=== PATIENT | female | born 1980 | race American Indian/Alaskan Native ===

== ENCOUNTER 2020-03-15 17:04 | Emergency (ER) | payer OTHER, SELFPAY ==
[2020-03-15 17:22] VITALS: BP 118/71; PULSE 76; RESP 15; TEMP 37.2; O2SAT 98; BMI 31.1
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
[2020-03-15] MEDS: LIDOCAINE/PRILOCAINE 5 GM TOP (18:10)
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
[2020-03-15] MEDS: TET,DIPH,PERTUSS(ACELL),VAC/PF 0.5 ML SYRINGE IM (18:41)
[2020-03-15] MEDS: KETOROLAC 60 MG/2 ML VIAL 30 MG IM (19:06)
[2020-03-15] MEDS: CYCLOBENZAPRINE 10 MG TABLET PO (19:06)
[2020-03-15] MEDS: LIDOCAINE PATCH 1 EACH ADH..PATCH TOP (19:07)
[2020-03-15] MEDS: BACITRACIN OINT 0.9 GM PCKT 2 APPLIC TOP (20:37)
[2020-03-15] MEDS: CYCLOBENZAPRINE 10 MG PREPACK 1 BOTTLE MISC (20:37)
[2020-03-15] MEDS: KETOROLAC 10MG PREPACK 1 BOTTLE MISC (20:37)
[2020-03-15 20:42] VITALS: BP 112/65; PULSE 81; O2SAT 99
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
== END 2020-03-15 20:57 | disposition home or self-care (01) ==
PROVIDERS: Emergency Provider Nurse Practitioner Family
DX: S51.012A Laceration without foreign body of left elbow, initial encounter (principal); M25.522 Pain in left elbow; M54.2 Cervicalgia; M62.830 Muscle spasm of back; V89.2XXA Person injured in unspecified motor-vehicle accident, traffic, initial encounter; Z23 Encounter for immunization
CPT/HCPCS: 72070; 72100; 72125; 73080; 90471; 96372; 99284; 90715; J1885

== ENCOUNTER 2025-02-14 15:29 | Emergency (ER) | payer OTHER, SELFPAY ==
[2025-02-14 15:36] VITALS: BP 150/76; PULSE 115; RESP 12; TEMP 36.7; O2SAT 97
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
--- NOTE | 2025-02-14 16:04 | ED_ITS ---
<Statement entered by Hernando Charles, DO - 02/14/25 18:22> Co-sign statement: I was available for consultation during this patient's emergency department visit. This chart is being signed by myself for administrative purposes only. I do not have direct contact with this patient during this visit. They were seen independently by the APC. HPI - Extremity Injury (Lower) General Chief Complaint: Extremity Injury, Lower Stated Complaint: R leg pain due to fall Time Seen by Provider: 02/14/25 15:50 Source: family Mode of arrival: Wheelchair History of Present Illness HPI Narrative: Ms. Lang is a pleasant 44-year-old female, with no significant reported past medical history, on Suboxone, who presents to the emergency department for right anterior knee pain after a fall x 3 days. Patient reports she was at a grocery store, wearing slides, when she slipped in some liquid causing her to fall and her need to twist/flex abnormally. Since then she has continued to have pain on the anterior lateral side of the knee and the knee/calf is swollen. She is having pain with weight-bearing and ambulation has been trying to walk on her heel. Reports that her left upper arm is slightly sore since the fall but not as bad as her knee, no tenderness to the shoulder, elbow or humerus but she does report some pain with abduction in the biceps muscle. No head strike, LOC or blood thinner use. No open wound on the leg, deformity or decreased sensation. She is here with some family members. Related Data Previous Rx's ?Medication ?Instructions ?Recorded azithromycin 250 mg tablet 0 tab PO QDAY #6 tabs 07/31 (Zithromax Z-Robe) cyclobenzaprine 10 mg tablet 10 mg PO TID PRN muscle s pasm #20 03/15/20 tabs ketorolac 10 mg tablet 10 mg PO TID PRN pain #10 ta bs 03/15/20 lidocaine 5 % topical patch 1 patch topical DAILY PRN pain #15 03/15/20 ea Allergies Allergy/AdvReac Type Severity Reaction Status Date / Time No Known Drug Allergies Allergy Verified 03/15/20 17:22 Review of Systems Review of Systems ROS Unobtainable: All systems reviewed & are unremarkable except as noted in HPI and below Patient History tobacco type: vaping alcohol intake frequency: holidays/special occasions only Exam Narrative Exam Narrative: GENERAL: 44 year old patient appears stated age. Overweight patient, in no acute distress. HEAD: Atraumatic. Normocephalic. EYES: No scleral icterus. No injection or drainage. NECK: Trachea midline. Cervical ROM intact. CARDIOVASCULAR: Increased rate, regular rhythm. RESPIRATORY: ?Nonlabored respirations. ?Speaking in clear, full sentences. ?? EXTREMITIES: Tenderness to palpation of anterior right knee overlying the patella and the patellar tendon. There is some edema of the right knee and tenderness on the posterolateral aspect as well. Patient is able to flex and extend the knee but with discomfort. 2+ DP pulse, brisk capillary refill and sensation intact to light touch in the dorsal and plantar aspect of the foot. Difficult to evaluate joint stability as patient does have significant pain with any attempt of anterior-posterior drawer. No erythema, bruising or increased warmth of the lower extremity. No medial or lateral malleolus tenderness of the bilateral ankles. No tenderness to palpation of bilateral hands, wrists, elbows, shoulders. NEURO: AOx3. ?Clear speech. ? SKIN: No rash or erythema of visible areas Initial Vital Signs Initial Vital Signs: Vital Signs Temperature 98.1 F 02/14/25 15:36 Pulse Rate 115 H 02/14/25 15:36 Respiratory Rate 12 02/14/25 15:36 Blood Pressure 150/76 H 02/14/25 15:36 Pulse Oximetry 97 02/14/25 15:36 Oxygen Delivery Method Room Air 02/14/25 15:36 Course Orders Ordered: ED Orders 02/14/25 15:53 XR knee RT 3V Stat 02/14/25 17:02 Consult to [facility] Stat Discontinued Medications Acetaminophen (Acetaminophen 325 Mg Tablet) 975 mg PO NOW ONE Stop: 02/14/25 16:37 Last Admin: 02/14/25 16:43 Dose: 975 mg Documented By: AILEEN Ibuprofen (Ibuprofen 400 Mg Tablet) 400 mg PO NOW ONE Stop: 02/14/25 16:37 Last Admin: 02/14/25 16:42 Dose: 400 mg Documented By: AILEEN Vital Signs Vital signs: Vital Signs - 8 hr 02/14/25 15:36 02/14/25 16:53 Temperature 98.1 F Pulse Rate 115 H 112 H Respiratory Rate 12 18 Blood Pressure 150/76 H 115/80 Pulse Oximetry 97 98 Oxygen Delivery Method Room Air Room Air MDM - Extremity Injury (Lower) Medical Records Attestation: I reviewed the patient's medical records. Imaging Data XR Right Knee: Radiologist's Impression: PROCEDURE: XR KNEE RT 3V INDICATIONS: pain after fall TECHNIQUE: 3 views of the knee were acquired. COMPARISON: None. FINDINGS: Bones: Acute avulsion fracture of the lateral fibular head. Acute impaction fracture of the lateral femoral condyle. No suspicious bony lesions. Soft tissues: Moderate joint effusion. No suspicious soft tissue calcifications. IMPRESSION: 1. Acute avulsion fracture of the lateral fibular head at the likely biceps femoris insertion. 2. Acute impaction fracture of the lateral femoral condyle likely secondary to a pivot-shift injury. 3. Recommend further evaluation with nonemergent knee MRI. Dictated by: Elijah Connor M.D. on 02/14/2025 at 16:39 Approved by: Elijah Connor M.D. on 02/14/2025 at 16:41 [facility] Narrative Medical decision making narrative: 44-year-old female, with no significant reported past medical history, on Suboxone, who presents to the emergency department for right anterior knee pain after a fall x 3 days. Differential diagnosis includes but is not limited to right knee sprain, strain, fracture, dislocation, ligament injury, etc. On exam patient is in no acute distress, nontoxic appearing, heart rate mildly elevated in triage otherwise vital signs appropriate. She is subjective pain with flexion-extension of right knee and tenderness to palpation of the anterior lateral knee. No obvious deformities. Lower extremities neurovascularly intact, warm, well perfused. Right knee x-ray obtained, we will treat pain with ibuprofen and Tylenol. X-ray reveals acute avulsion fracture of the lateral fibular head at likely biceps femoris insertion, acute impaction fracture of the lateral femoral condyle likely secondary to a pivot shift injury, recommend further evaluation with nonemergent knee MRI. Orthopedic surgeon on-call was consulted, Dr. Shaw. Discussed patient history and x-ray report. He explained that patient has likely torn their ACL and we will need to be placed into a knee immobilizer, he did recommend a hinged knee immobilizer however we do not have these in the ER so he was okay with her going into a regular knee immobilizer, with crutches and weight-bearing as tolerated. He recommends that the patient call and follow up with Dr. Agrawal or [place] with need for likely ACL repair surgery. Printed and discussed imaging results and orthopedic consultation with the patient. She verbalized understanding of the importance of follow up with Orthopedics, we discussed supportive care with brace, crutches, rice therapy, ibuprofen, Tylenol. Also provided her with a work note for light duty. Patient verbalized understanding of all information and is agreeable to the plan, she is stable for discharge home. Discharge Plan Departure Patient Disposition: Home Clinical Impression: Closed fracture of head of right fibula Qualifiers: Encounter type: initial encounter Qualified Code(s): S82.831A - Other fracture of upper and lower end of right fibula, initial encounter for closed fracture Closed fracture of femoral condyle Qualifiers: Encounter type: initial encounter Fracture alignment: nondisplaced Laterality: right Qualified Code(s): S72.414A - Nondisplaced unspecified condyle fracture of lower end of right femur, initial encounter for closed fracture Fall from slipping Qualifiers: Encounter type: initial encounter Qualified Code(s): W01.0XXA - Fall on same level from slipping, tripping and stumbling without subsequent striking against object, initial encounter Instructions: DI for Anterior Cruciate Ligament Injury Activity Restrictions/Additional Instructions: Dear Ms. Lang, Thank you for coming to the emergency department. I am very sorry that you experienced a slip and fall resulting in a right knee injury. As we discussed, your x-ray today showed a fracture of the fibula and the femoral condyle, and you likely have injured her ACL. You will need to follow up with Orthopedics for further imaging and management. Please use the knee immobilizer you were supplied with today in addition to crutches. Please use RICE therapy for your pain in addition to ibuprofen/acetaminophen. Rest the painful area. Ice the area of pain/swelling for at least 15 minutes, 4x a day. Compress the area of swelling using a brace, wrap, or splint if applied. Elevate the painful or swollen extremity by supporting it above the level of the heart with pillows when sitting or laying. Please take Ibuprofen (Motrin/Advil) or Acetaminophen (Tylenol) for pain. These are available over the counter. You may take Ibuprofen 600 mg every 8 hours with food for pain. You may also take Acetaminophen 650 mg every 4-6 hours for pain. Do not exceed 3000 mg of Tylenol a day as this can cause liver damage. Do not drink alcohol with either of these medications. Please call to schedule an appointment with [facility] for follow up. Please follow up with your primary care doctor within the next 2-3 days for ER follow-up. (If you do not have a PCP you can call [phone]. ?to schedule an appointment with an [facility] Primary Care Provider) IF YOU DEVELOP ANY NEW OR WORSENING SYMPTOMS, RETURN TO THE ER! Please read the attached instructions, they highlight more specific treatments and interventions for you at home. Thank you for letting me participate in your care, Niki Booth PA-C Prescriptions: No Action azithromycin [Zithromax Z-Robe] 250 MG tablet 0 tab PO QDAY Qty: 6 0RF lidocaine 5 % adhesive patch,medicated 1 patch TOP DAILY PRN (Reason: pain) Qty: 15 0RF Rx Instructions: leave on most painful area for up to 12 hrs cyclobenzaprine 10 mg tablet 10 mg PO TID PRN (Reason: muscle spasm) Qty: 20 0RF ketorolac 10 mg tablet 10 mg PO TID PRN (Reason: pain) Qty: 10 0RF Referrals: Celestina Agrawal DO [Physician, Orthopedic Surgery] Referral Note: R knee fractures Stand Alone Forms: Patient Portal/API, Work Release Note
[2025-02-14] MEDS: IBUPROFEN 400 MG TABLET PO (16:42)
[2025-02-14] MEDS: ACETAMINOPHEN 325 MG TABLET 975 MG PO (16:43)
[2025-02-14 16:53] VITALS: BP 115/80; PULSE 112; RESP 18; O2SAT 98
== END 2025-02-14 17:25 | disposition home or self-care (01) ==
PROVIDERS: Emergency Provider Physician Assistant
DX: S82.831A Other fracture of upper and lower end of right fibula, initial encounter for closed fracture (principal); S72.414A Nondisplaced unspecified condyle fracture of lower end of right femur, initial encounter for closed fracture; W01.0XXA Fall on same level from slipping, tripping and stumbling without subsequent striking against object, initial encounter
CPT/HCPCS: 73562; 99283; 99284

== ENCOUNTER → 2025-03-05 16:28 | Outpatient (CLI) | payer OTHER, SELFPAY ==
--- NOTE | 2025-03-05 16:30 | DI.MRI.S_ITS ---
PROCEDURE: MR KNEE RT WO CON INDICATIONS: eval fractures TECHNIQUE: Noncontrast sagittal PD fast spin echo and T2 fast spin echo with fat saturation, sagittal 3-D FLASH with fat saturation; coronal T1 spin echo and PD fast spin echo with fat saturation, and axial PD fast spin echo with fat saturation through the knee. COMPARISON: None. FINDINGS: Image quality: Excellent. Some images are limited by patient motion, pulsation or other artifacts with some low [id number]. Bones and cartilage: Abnormal appearance of the right knee with multiple bone contusions most notably the anterior aspect of the medial femoral condyle (series 10, 11, image 19) with bone edema and a 1.8 cm diameter area osteo necrosis under the cortical impaction site. Bone edema is also noted in the medial tibial plateau anteriorly and posteriorly (series 11, image 20) most likely related to impaction or matching bone contusions from the femoral site. Marked bone edema related to the known avulsion fracture of the proximal right fibula head and there is some adjacent edema in the lateral tibial metaphysis. No definitive full tibial plateau fracture. [id number] diffuse cartilaginous thinning in the medial and lateral greater than patellofemoral compartments. Menisci: Markedly abnormal appearance of the medial meniscus with complex horizontal and oblique tears exiting to the inferior surface of the posterior horn extending towards the midbody. Anterior horn is grossly intact. Medial meniscus is markedly extruded medially on the coronal images The lateral meniscus demonstrates minimal internal signal in the anterior horn does not definitively exit to a surface. Posterior meniscocapsular separation medial and lateral. Cruciate ligaments: Markedly abnormal signal with heterogeneous increased T2 weighted signal, thickening and irregularity of the anterior cruciate ligament which is torn with minimal intact fibers near complete tear. Posterior cruciate ligament demonstrates mild increased T2 weighted signal/thickening proximally mild injury/strain without complete tear and with intact fibers. Medial structures: Increased T2 weighted signal surrounding and within the medial collateral ligament grade 2 injury. Medial collateral ligament is displaced medially on the coronal images along its entire course.. Moderate diffuse increased T2 weighted signal, tendinopathy versus partial tear distal semimembranosus tendon. Injury/strain versus partial tear proximal attachment medial head of the gastrocnemius. Small popliteal cyst measures up to 2 cm. Lateral structures: Abnormal increased T2 weighted signal, thickening injury and partial tear of the distal biceps femoris tendons. Abnormal signal in the proximal and distal aspects of the lateral collateral ligament moderate injury/strain and edema surrounding the distal aspect related to the previously noted avulsion fracture of the fibula head. Moderate diffuse edema in the popliteus muscle and partial tear of the popliteus tendon with surrounding edema and fluid. Moderate diffuse edema surrounding the iliotibial band. Anterior structures: Increased T2 weighted signal/edema in the proximal and distal aspects of the patellar ligament, injury/strain. Quadriceps tendon appears intact. Nonspecific subcutaneous edema anterior to the patella and patellar ligament. Patellar alignment is normal. No femoral trochlear dysplasia or ventral trochlear prominence. Joint space: Moderate knee joint effusion. IMPRESSION: Markedly abnormal appearance of the right knee with numerous injuries including bone contusions, trabecular injuries in the medial femoral condyle anteriorly, medial tibial plateau, avulsion fracture of the fibular head, edema in the lateral tibial metaphysis. Complex tear of the posterior horn into the mid body of the medial meniscus. Probable complete tear of the anterior cruciate ligament. Grade 2 injury medial collateral ligament. Injuries of the distal biceps tendon, lateral collateral ligament, proximal posterior cruciate ligament, distal semimembranosus tendon, popliteus, medial head of the gastrocnemius proximally as discussed above. Moderate knee joint effusion. Other findings as above. Dictated by: Beau Murphy M.D. on 03/06/2025 at 14:05 Approved by: Beau Murphy M.D. on 03/06/2025 at 14:28
== END ==
PROVIDERS: Referring Provider Orthopaedic Surgery; Visit Provider Orthopaedic Surgery
DX: S82.831A Other fracture of upper and lower end of right fibula, initial encounter for closed fracture (principal); S72.414A Nondisplaced unspecified condyle fracture of lower end of right femur, initial encounter for closed fracture; S83.231A Complex tear of medial meniscus, current injury, right knee, initial encounter; S83.511A Sprain of anterior cruciate ligament of right knee, initial encounter; M25.461 Effusion, right knee; M71.21 Synovial cyst of popliteal space [Baker], right knee; X58.XXXA Exposure to other specified factors, initial encounter
CPT/HCPCS: 73721

== ENCOUNTER 2025-03-07 16:18 | Emergency (ER) | payer OTHER, SELFPAY ==
[2025-03-07 16:30] VITALS: BP 152/86; PULSE 85; RESP 16; TEMP 36.9; O2SAT 96; BMI 48.4
--- NOTE | 2025-03-07 16:37 | DI.US.S_ITS ---
PROCEDURE: US PERIPH VENOUS LOW EXTREM RT INDICATIONS: RLE edema TECHNIQUE: Real-time imaging, as well as color and pulse Doppler interrogation, were performed of the lower extremity deep veins from the inguinal ligament to the popliteal fossa, with documentation of the visualized calf veins. COMPARISON: None. FINDINGS: The common femoral, femoral, popliteal, and the visualized calf veins are normally compressible, and free of intraluminal thrombus. Color and pulse Doppler demonstrate normal phasic intraluminal flow. There is normal augmentation response to distal compression maneuver. IMPRESSION: No findings of lower extremity deep venous thrombosis. Dictated by: Jamar Rubin M.D. on 03/07/2025 at 18:56 Approved by: Jamar Rubin M.D. on 03/07/2025 at 18:56
--- NOTE | 2025-03-07 16:44 | ED_ITS ---
HPI - Extremity Problem <Renan Armstrong PA-C - Last Filed: 03/07/25 19:04> General Chief complaint: Extremity Problem,Nontraumatic Stated complaint: stat us Time Seen by Provider: 03/07/25 16:37 Source: patient Mode of arrival: Ambulatory History of Present Illness HPI Narrative: This is a 44-year-old female presents emergency department due to right lower extremity swelling. She states that her right lower extremity has been swollen since her injury 3 weeks ago. Briefly she fell 3 weeks ago and had femoral condyle as well as fibular head fracture which she was was seen here for placed in a knee immobilizer. She was then seen by Orthopedics 2 weeks ago and recommended to have an MRI obtained. Recently being seen for by her PCP for routine follow up with they sent her here as they are concerned with the right lower extremity swelling for urgent ultrasound. She states that the right lower extremity has been swollen since the injury 3 weeks ago. Denies any chest pain, shortness breath, fevers, or any other concerning signs or symptoms Related Data Home Medications ?Medication ?Instructions ?Recorded ?Confirmed buprenorphine 8 mg-naloxone 2 mg 2 film buccal DAILY 1 02/27/25 sublingual film (Suboxone) lisinopril 20 mg tablet 20 mg PO DAILY 02/27/2506/23 Previous Rx's ?Medication ?Instructions ?Recorded meloxicam 15 mg tablet 15 mg PO DAILY #30 tabs 06/23 Allergies Allergy/AdvReac Type Severity Reaction Status Date / Time No Known Drug Allergies Allergy Verified 02/27/25 14:14 Review of Systems <Renan Armstrong PA-C - Last Filed: 03/07/25 19:04> Review of Systems Narrative: GENERAL: Denies chills, fatigue, malaise, fever, sweats. HEENT: Denies sinus pain, ear pain, sore throat, difficulty swallowing, dizziness. RESPIRATORY: Denies dyspnea, cough, wheezing, hemoptysis, sputum. CARDIOVASCULAR: Denies chest pain, palpitations, orthopnea, edema, GASTROINTESTINAL: Denies nausea, vomiting, abdominal pain, diarrhea, constipation, melena. : Denies dysuria, frequency, incontinence, hematuria, urinary retention. MUSCULOSKELETAL: Reports right calf swelling and pain SKIN: Denies rash, skin lesions, or other NEUROLOGIC: Denies weakness, headache, numbness, change in speech, confusion, seizures, incoordination. PSYCHIATRIC: No concerning psychosocial issues. 12 point review of systems is negative except for those stated above Patient History <Renan Armstrong PA-C - Last Filed: 03/07/25 19:04> tobacco type: vaping alcohol intake frequency: holidays/special occasions only Exam <Renan Armstrong PA-C - Last Filed: 03/07/25 19:04> Narrative Exam Narrative: GENERAL: Well-developed patient, in mild distress. HEAD: Atraumatic. Normocephalic. EYES: Pupils equal round and reactive. Extraocular motions intact. No scleral icterus. No injection or drainage. ENT: Nose without bleeding, purulent drainage. Throat without erythema, tonsillar hypertrophy or exudate. Airway patent. NECK: Trachea midline. Non tender EXTREMITIES: Mild 1+ edema to the right calf, nonpitting, tenderness to palpation of the right calf as well. NEURO: AOx3. SKIN: No rash or erythema of visible areas Initial Vital Signs Initial Vital Signs: Vital Signs Temperature 98.4 F 03/07/25 16:30 Pulse Rate 85 03/07/25 16:30 Respiratory Rate 16 03/07/25 16:30 Blood Pressure 152/86 H 03/07/25 16:30 Pulse Oximetry 96 03/07/25 16:30 Oxygen Delivery Method Room Air 03/07/25 16:30 <Marlo Maxwell MD - Last Filed: 03/08/25 01:45> Initial Vital Signs Initial Vital Signs: Vital Signs Temperature 98.4 F 03/07/25 16:30 Pulse Rate 85 03/07/25 16:30 Respiratory Rate 16 03/07/25 16:30 Blood Pressure 152/86 H 03/07/25 16:30 Pulse Oximetry 96 03/07/25 16:30 Oxygen Delivery Method Room Air 03/07/25 16:30 Course <Renan Armstrong PA-C - Last Filed: 03/07/25 19:04> Orders Ordered: ED Orders 03/07/25 16:37 US periph venous low extrem rt Urgent Vital Signs Vital signs: Vital Signs - 8 hr 03/07/25 16:30 Temperature 98.4 F Pulse Rate 85 Respiratory Rate 16 Blood Pressure 152/86 H Pulse Oximetry 96 Oxygen Delivery Method Room Air <Marlo Maxwell MD - Last Filed: 03/08/25 01:45> Orders Ordered: ED Orders 03/07/25 16:37 US periph venous low extrem rt Urgent Vital Signs Vital signs: Vital Signs - 8 hr 03/07/25 16:30 Temperature 98.4 F Pulse Rate 85 Respiratory Rate 16 Blood Pressure 152/86 H Pulse Oximetry 96 Oxygen Delivery Method Room Air MDM - Extremity (Nontraumatic) <Renan Armstrong PA-C - Last Filed: 03/07/25 19:04> Imaging Data US - DVT: Radiologist's Impression: [place] [address] Ultrasound Report Signed Patient: Esperanza Lang MR#: [id number] : 1980 Acct:[id number] Age/Sex: 44 / F Date of Service: 03/07/25 Loc: ED Accession Number: [id number] Procedure: US periph venous low extrem rt Ordering Provider: Renan Armstrong PA-C PROCEDURE: US PERIPH VENOUS LOW EXTREM RT INDICATIONS: RLE edema TECHNIQUE: Real-time imaging, as well as color and pulse Doppler interrogation, were performed of the lower extremity deep veins from the inguinal ligament to the popliteal fossa, with documentation of the visualized calf veins. COMPARISON: None. FINDINGS: The common femoral, femoral, popliteal, and the visualized calf veins are normally compressible, and free of intraluminal thrombus. Color and pulse Doppler demonstrate normal phasic intraluminal flow. There is normal augmentation response to distal compression maneuver. IMPRESSION: No findings of lower extremity deep venous thrombosis. Dictated by: Jamar Rubin M.D. on 03/07/2025 at 18:56 Approved by: aJmar Rubin M.D. on 03/07/2025 at 18:56 [facility] Narrative Medical decision making narrative: ED course: This is a 44-year-old female presents emergency department due to right lower extremity swelling for the last 3 weeks after she fractured her lateral fibular head as well as lateral femoral condyle. Compartments were soft and low concern for compartment syndrome. Right lower extremity ultrasound was ordered which was negative for DVT. She will follow up with the PCP for routine management of suspected benign swelling due to the injury. Of note patient was elected to leave the emergency department due to getting dark before the ultrasound report came back. Attempted to call the patient to inform her of the results but went right to voicemail. Voicemail left informing her of negative for DVT. CC: Right lower extremity swelling Complicating co-morbidities: History of right lower extremity fracture Data collected from: Previous notes Medical records reviewed: Patient was seen this emergency department 21 days ago due to a right lower extremity injury. On Suboxone. Knee x-ray showed acute avulsion fracture of the lateral fibular head as well as an acute impaction injury of the lateral femoral condyle. Suspected 20 Cl we will need to be placed in knee immobilizer with crutches and weight-bearing as tolerated. Seen by orthopedics 8 days ago and recommended to obtain a knee MRI. Differential considered, but not limited to: Fracture, sprain, DVT, compartment syndrome Exam documented above, pertinent findings include: Right lower extremity edema, no erythema Lab Test results independently reviewed as above. Pertinent findings: None obtained Imaging studies independently reviewed: Ultrasound negative for DVT Scores Used: None MIPS Elements: None Consultations: None Treatments: None Re-evaluations: None Discussion: Discussed plan with the patient was comfortable with the plan Diagnosis: Right lower extremity swelling Disposition: see below, along with detailed discharge instructions that have been reviewed with patient as well as indications for ED re-evaluation and ad ditional outpatient follow up Discharge Plan Departure Patient Disposition: Home Clinical Impression: Lower extremity edema Prescriptions: No Action lisinopril 20 mg tablet 20 mg PO DAILY buprenorphine-naloxone [Suboxone] 8-2 mg film 2 film buccal DAILY Rx Instructions: place 1 film on inside of (each) cheek meloxicam 15 mg tablet 15 mg PO DAILY Qty: 30 0RF Stand Alone Forms: Patient Portal/API ED Sign-out <Marlo Maxwell MD - Last Filed: 03/08/25 01:45> Cosign ED Attending Cosinaature Attestation: I was immediately available in the department for consultation. This documentation has been reviewed and I agree with assessment and plan. Supervised by Marlo Maxwell MD
== END 2025-03-07 18:40 | disposition home or self-care (01) ==
PROVIDERS: Emergency Provider Physician Assistant Medical
DX: R60.0 Localized edema (principal)
CPT/HCPCS: 93971; 99281; 99283

== ENCOUNTER → 2025-05-13 17:19 | Outpatient (CLI) | payer OTHER, SELFPAY ==
[2025-05-13 18:10] LABS: Hemoglobin A1C% w Est Avg Glu 5.9 % (4.0-6.0)
[2025-05-13 18:24] LABS: Alanine Aminotransferase 37 IU/L (<35); Albumin 4.2 g/dL (3.5-5.0); Albumin Globulin Ratio 1.1 (1.0-2.8); Alkaline Phosphatase 124 U/L (38-126); Blood Urea Nitrogen 6 mg/dL (7-17); Calcium 9.2 mg/dL (8.4-10.2); Carbon Dioxide 27 mmol/L (22-32); Chloride 100 mmol/L (98-107); Cholesterol 180 mg/dL (140-199); Estimated Glomerular Filt Rate > 60 mL/min (>60); Globulin 3.9 g/dL (1.7-4.1); Glucose 141 mg/dL (70-99); HDL Cholesterol 50 mg/dL (40-60); HEMOLYSIS 33 (0-50); Potassium 4.0 mmol/L (3.4-5.1); Sodium 136 mmol/L (137-145); Total Protein 8.1 g/dL (6.3-8.2); Triglycerides 144 mg/dL (35-150)
[2025-05-13 18:57] LABS: TSH w/ Reflex to FT4 1.35 uIU/mL (0.47-4.68)
== END ==
PROVIDERS: Referring Provider Nurse Practitioner Family; Visit Provider Nurse Practitioner Family
DX: I10 Essential (primary) hypertension (principal); R00.0 Tachycardia, unspecified; Z68.41 Body mass index [BMI] 40.0-44.9, adult
CPT/HCPCS: 36415; 80053; 80061; 83036; 84443